=== PATIENT | female | born 1985 | race Caucasian/White ===

== ENCOUNTER 2017-07-08 21:14 | Inpatient (IN) | payer BC ==
[2017-07-08 22:01] VITALS: BMI 27.9
[2017-07-08 23:02] LABS: BASO # 0.1 K/uL (0.0-0.2); BASO % 0.8 % (0.0-2.0); EOS # 0.2 K/uL (0.0-0.7); EOS % 1.6 % (0.0-4.0); HEMOGLOBIN 14.5 g/dL (12.0-16.0); LYMPH # 2.4 K/uL (1.0-4.3); LYMPH % 21.5 % (20.0-40.0); MEAN CELL VOLUME 83.4 fl (81.0-99.0); MEAN CORPUSCULAR HEMOGLOBIN 27.5 pg (27.0-31.0); MEAN PLATELET VOLUME 9.9 fl (7.2-11.7); MONO # 0.6 K/uL (0.0-0.8); MONO % 5.1 % (0.0-10.0); NEUT # 7.9 K/uL (1.8-7.0); RBC 5.27 Mil/uL (3.80-5.20); RED CELL DISTRIBUTION WIDTH 13.8 % (11.5-14.5); WHITE BLOOD COUNT 11.1 K/uL (4.8-10.8)
[2017-07-08] MEDS: Lactated Ringer's 1,000 ML IV SCH (23:59)
--- NOTE | 2017-07-09 00:41 | OBHP ---
Datetime: 07/08/2017 21:00 IP Adm Impression: Term, intrauterine IP Admit Plan: Admit to unit; Initiate labor induction protocol Admit Comment, IP Provider: CC: IOL due to IUGR 31 yo F at 38 weeks presents for IOL due to IUGR, no complaints at this time, -lof,vb,ctx, +FM. PNC: [facility] Dr Flor. PMH: hypothyroidism, PCOS PObH: none PGyn: none FMH: Mother HTN, Father HTN, DM. PSH: none Meds: PNV NKDA SH: -etoh,tobacco,drugs VS: wnl TOCO- Occasional Ctx. FHR- Category 1, Ceph - presentation. Pelvic: 0/50/-2 A/P: 31 yo IUP 38 wks admitted for IOL, IUGR Admitt to unit Cervidil /maternal monitoring Case discussed with Dr Ash Combs PGY 1. Pt seen and evaluated with resident and I agree with the above. Pelvic Type - PN: Adequate Extremities - PN: Normal Abdomen - PN: Normal Back - PN: Normal Breast - PN: Normal Lungs - PN: Normal Heart - PN: Normal Thyroid - PN: Normal Neurologic - PN: Normal HEENT - PN: Normal General - PN: Normal FHR - Baseline A Provider: 148 Membranes, Provider: Intact IP Indication for Induction: IUGR IP Chief Complaint: Scheduled induction of labor NICHD Variability Prov Fetus A: Moderate 6-25bpm NICHD Accel Fetus A IP Provider: [id number] FHR Category Provider Fetus A: Category I NICHD Decel Fetus A IP Provider: None Dilatation, Provider: 0 Effacement, Provider: 50 Station, Provider: -2 Genitourinary Exam: Normal DTRs - PN: Normal
[2017-07-09] MEDS ORDERED: Nalbuphine 20 mg/ml Inj (1 ml) IVP PRN (01:05)
[2017-07-09] MEDS ORDERED: Oxytocin 30 UNITS in Sodium Chloride 0.9% 500 ML IV ONE (03:46)
[2017-07-09] MEDS ORDERED: Bicitra 30 ML UD PO ONE (03:51)
[2017-07-09] MEDS ORDERED: cefOXitin 2 GM in Sodium Chloride 0.9% 100 ML IVPB ONE (04:00)
[2017-07-09] MEDS ORDERED: Morphine 1 mg/ml preservative-free Inj(Duramorph) ONE (04:13)
[2017-07-09] MEDS ORDERED: ePHEDrine 50 mg/ml Inj ONE (04:15)
--- NOTE | 2017-07-09 04:18 | OBPN ---
Datetime: 07/09/2017 04:08 IP Progress Impression: Non-reassuring heart rate IP Procedures: Sterile Vag Exam IP Progress Plan: Deliver- Section FHR - Baseline A Provider: 170 Gestation - Est Wks by US: 38.3 Presentation-Admit: Vertex IP Progress Note Comment: Called to see Pt who has been having eric fetus with tachycardia and variable and late decelerations for most of the contractions. This pattern of tracing continues despite resuscitative measures with oxygen, IV bolus and positioning. The uterus felt firm and boardlike during the contractions. Pulse rate ranged from 105 to 130. Assessment: IUP at 38wks being induced for IUGR Non Reassuring Heart Tracing( Category 3 ) This was explained to the Patient and Delivery recommended. Pt agrees and signed a consent for the procedure. Plan: Prepare for Delivery. NICHD Accel Fetus A IP Provider: 10X10 FHR Category Provider Fetus A: Category III NICHD Variability Prov Fetus A: Minimal - Undetectable to <5bpm Dilatation, Provider: 1 Effacement, Provider: 50 Station, Provider: -2 NICHD Decel Fetus A IP Provider: Late; Variable Datetime: 07/08/2017 21:00 Membranes, Provider: Intact
[2017-07-09] MEDS ORDERED: DiphenhydrAMINE 50 mg/ml Inj IVP PRN (05:42)
--- NOTE | 2017-07-09 05:48 | PCM.SURG1 ---
Surgeon's Initial Post Op Note - Surgeon's Notes Surgeon: Dr Aleman Director Human Services: Laila Gonzalez (Family Practice Resident 0 Type of Anesthesia: Spinal Anesthesia Administered By: Dr Malik Pre-Operative Diagnosis: IUP at 38wks in Labor,. Non Reassuring Heart Rate Tracing Operative Findings: Live male with BW of 2800gm and scores of 9 and 9 delivered in cephalic presentation with a true knot found at the middle portion of the umbilical cord. The uterus as well as both fallopian tubes and ovaries appeared normal. Fundal placenta and clear amniotic fluid. IVFluids- 2000mls. EBL- 600mls. Urine output- 200mls Post-Operative Diagnosis: Same as Above. True umbilical knot Operation Performed: Primary Low transverse Section Specimen/Specimens Removed: Umbilical Cord blood for banking done. Collection material provided by Patient. Estimated Blood Loss: EBL {In ML}: 600 Blood Products Given: N/A Post-Op Condition: Good Date of Surgery/Procedure: 07/09/17 Time of Surgery/Procedure: 05:51
[2017-07-09] MEDS ORDERED: Oxycodone/Acetaminophen 5/325 mg Tab PO PRN (05:52)
[2017-07-09] MEDS: Lactated Ringer's 1,000 ML IV SCH ×2 (07:11→14:03)
--- NOTE | 2017-07-09 08:09 | OBDS ---
DELIVERY PERSONNEL Delivery Doctor: Cesar Aleman MD Warp Dresser: Korina Gifford RN Anesthesiologist: Melida Malik MD Resident: Fermín MATERNAL INFORMATION Delivery Anesthesia: Spinal Medications in Delivery: Oxytocin Estimated Blood Loss (ml): 600 Placenta Cultured: Yes Maternal Complications: None Provider Comments: Uncomplicated Delivery of a viable infant with BW of 2800gms and s cores of 9 and 9. A single true knot noted in the midportion of the umbilical cord. LABOR SUMMARY EDC: 07/20/2017 00:00 No. Babies in Womb: 1 Attempted: No Labor Anesthesia: None LABOR INFORMATION Reason for Induction: Not Applicable Cervical Ripening Agents: Cervidil (Annotations: Placed by Dr. Peguero) Oxytocin: N/A Group B Beta Strep: Positive Steroids Given: None Reason Steroids Not Administered: Not Applicable MEMBRANES Membranes Rupture Method: Artificial Rupture of Membranes: 07/09/2017 04:48 Length of Rupture (hrs): 0.02 Amniotic Fluid Color: Clear Amniotic Fluid Amount: Moderate Amniotic Fluid Odor: Normal STAGES OF LABOR Stage 3 hrs: 0 Stage 3 min: 1 CSECTION DELIVERY Primary Indication: Nonreassuring Status CSection Urgency: Elective CSection Incidence: Primary Labor: Labor Elective: Elective CSection Incision: Lower Uterine Transverse BABY A INFORMATION Infant Delivery Date/Time: 07/09/2017 04:49 Method of Delivery: Born in Route : No : N/A Forceps: N/A Vacuum Extraction: N/A Shoulder Dystocia : No SHOULDER DYSTOCIA BABY A Infant Delivery Date/Time: 07/09/2017 04:49 PRESENTATION/POSITION BABY A Presentation: Cephalic Cephalic Presentation: Vertex PLACENTA INFORMATION BABY A Placenta Delivery Time : 07/09/2017 04:50 Placenta Method of Delivery: Manual Removal Placenta Status: Delivered SCORES BABY A Heart Rate 1 min: >100 bpm Resp Effort 1 min: Good Cry Reflex Irritability 1 min: Cough or Sneeze or Pulls Away Muscle Tone 1 min: Active Motion Color 1 min: Body [place], Extremities Blue Resuscitation Effort 1 min: Tactile Stimulation SCORE 1 MIN: 9 Heart Rate 5 min: >100 bpm Resp Effort 5 min: Good Cry Reflex Irritability 5 min: Cough or Sneeze or Pulls Away Muscle Tone 5 min: Active Motion Color 5 min: Body [place], Extremities Blue Resuscitation Effort 5 min: Tactile Stimulation SCORE 5 MIN: 9 INFORMATION BABY A Gestational Age at Delivery: 38.3 Gestational Status: Term Outcome : Liveborn Condition : Stable Sex: Male IDENTIFICATION/MEDS BABY A ID Band Number: [id number] ID Band Location: Left Leg; Left Arm WEIGHT/LENGTH BABY A Birthweight (gms): 2800 Infant Weight (lb): 6 Weight (oz): 3 CORD INFORMATION BABY A No. Cord Vessels: 3 Nuchal Cord : N/A True Knot: 1 Cord Blood Taken: Yes Banking/Donate Info: [id number] Suction: Mouth ASSESSMENT BABY A Infant Complications: None Physical Findings at Delivery: Within Normal Limits Infant Respirations: Intercostal Retractions Paid Search Marketing Strategist/ALS Called : No Care By: Rhona Dalton RN Transferred To: Nursery
[2017-07-09] MEDS: Simethicone 80 mg Chewtab PO SCH ×2 (10:34→21:33)
[2017-07-09] MEDS: cefOXitin IV 1 gm in Dextrose 1 GM/50 ML BAG IVPB SCH ×2 (14:04→21:32)
[2017-07-10] MEDS: Simethicone 80 mg Chewtab PO SCH ×4 (05:37→22:48)
[2017-07-10] MEDS: cefOXitin IV 1 gm in Dextrose 1 GM/50 ML BAG IVPB SCH (05:38)
[2017-07-10 06:24] LABS: BASO # 0.1 K/uL (0.0-0.2); BASO % 0.5 % (0.0-2.0); EOS # 0.1 K/uL (0.0-0.7); EOS % 0.8 % (0.0-4.0); HEMOGLOBIN 11.5 g/dL (12.0-16.0); LYMPH # 2.2 K/uL (1.0-4.3); LYMPH % 12.9 % (20.0-40.0); MEAN CELL VOLUME 85.1 fl (81.0-99.0); MEAN CORPUSCULAR HEMOGLOBIN 27.7 pg (27.0-31.0); MEAN CORPUSCULAR HGB CONC 32.6 g/dL (33.0-37.0); MONO # 0.7 K/uL (0.0-0.8); MONO % 4.1 % (0.0-10.0); NEUT # 13.8 K/uL (1.8-7.0); NEUT % 81.7 % (50.0-75.0); RBC 4.14 Mil/uL (3.80-5.20); RED CELL DISTRIBUTION WIDTH 13.7 % (11.5-14.5); WHITE BLOOD COUNT 16.9 K/uL (4.8-10.8)
--- NOTE | 2017-07-10 10:10 | OBPPN ---
Datetime: 07/10/2017 10:06 PP Pain Prov: Within normal limits PP Nausea Prov: Denies PP Flatus Prov: Yes PP Breasts Prov: Not Done PP Heart Prov: Normal PP Lungs Prov: Normal PP Abdomen/Uterus Prov: Normal PP Lochia Prov: Not Done PP Vulva/Perineum Prov: Not Done PP CVA Tenderness Prov: Normal PP Extremities Prov: Normal PP C/S Incision Prov: Normal PP Impression Prov: Normal progression PP Plan Prov: Continue present management PP Progress Note Prov: Doing well ambulating tolerating diet and passing flatus and voiding without difficulty reports minimal lochia Vital signs stable afebrile Uterus firm below the umbilicus Incision clean dry and intact Extremities no Homans Postoperative day #1 Ambulating, regular diet, analgesics as needed, anticipate possible discharge tomorrow evening Vital Signs Provider PP: Reviewed
[2017-07-11] MEDS: Simethicone 80 mg Chewtab PO SCH ×4 (04:46→21:00)
[2017-07-11] MEDS: cefOXitin IV 1 gm in Dextrose 1 GM/50 ML BAG IVPB SCH (09:36)
--- NOTE | 2017-07-11 12:13 | OBPPN ---
Datetime: 07/11/2017 12:09 PP Pain Prov: Within normal limits PP Nausea Prov: Denies PP Flatus Prov: Yes PP BM Prov: Yes PP Breasts Prov: Normal PP Heart Prov: Normal PP Lungs Prov: Normal PP Abdomen/Uterus Prov: Normal PP Lochia Prov: Normal PP Vulva/Perineum Prov: Normal PP CVA Tenderness Prov: Normal PP Extremities Prov: Normal PP C/S Incision Prov: Normal PP Progress Prov: Normal PP Comments Phys Exam Prov: Incision clean, dry, intact Uterus firm, below umbilicus No deep Tenderness bilaterally PP Impression Prov: Normal progression PP Plan Prov: Continue present management PP Progress Note Prov: Postoperative #2 status post , patient recovering well Regular diet, out of bed, ambulate Pain control Venodyne's while in bed Anticipate DC home tomorrow IP PP Procedures: None Vital Signs Provider PP: Reviewed; Within Normal Limits
[2017-07-12] MEDS: Simethicone 80 mg Chewtab PO SCH (03:48)
--- NOTE | 2017-07-12 10:55 | OBPPN ---
Datetime: 07/12/2017 10:53 PP Pain Prov: Within normal limits PP Nausea Prov: Denies PP Flatus Prov: Yes PP Breasts Prov: Normal PP Heart Prov: Normal PP Lungs Prov: Normal PP Abdomen/Uterus Prov: Normal PP Lochia Prov: Normal PP Vulva/Perineum Prov: Normal PP CVA Tenderness Prov: Normal PP Extremities Prov: Normal PP Comments Phys Exam Prov: Abd: Soft,NT, BS- present UT- Firm, NT Incision- Clean, Dry PP Impression Prov: Normal progression PP Progress Note Prov: S/P Repeat Section, POD #3 Clinically Stable. Plan: D/c Home F/U with OB clinic in 2 weeks. Pelvic rest for 6 weeks. Vital Signs Provider PP: Reviewed
--- NOTE | 2017-07-12 10:58 | OBDCSUM ---
Datetime: 07/12/2017 10:41 Discharged to, Provider: Home Follow up at, Provider: 1 week incision check up and 6 week vaginal check up Disch Instr Activity: Normal activity; May be up to bathroom; May be up for meals; May Shower Disch Instr Diet: Regular Discharge Instructions, Provider: Routine instructions given Discharge Diagnosis, Provider: Term Delivered Discharge Time: 07/12/2017 10:45 Follow up in weeks, Provider: 1 Week Disch Referrals: None Contraception discussed, Prov: Yes Disch Activity Restrictions: Minimize stair-climbing; No sexual activity; Nothing in vagina - Interc ourse, tampons, douche Discharge Comment, Provider: S/P Repeat Section, Clinically Stable Discharge Diagnosis Prov Other: S/P Repeat Section, Clinically Stable
[2017-07-13 02:53] VITALS: BP 106/71; PULSE 79; RESP 20; TEMP 98.1; O2SAT 98
--- NOTE | 2017-07-13 14:49 | OP ---
PROCEDURE DATE: PREOPERATIVE DIAGNOSIS: Intrauterine at 38 weeks in labor with nonreassuring heart tracing. POSTOPERATIVE DIAGNOSIS: Intrauterine at 38 weeks in labor with nonreassuring heart tracing. PROCEDURE DONE: Primary low transverse caesarean section performed on 07/08/2017. SURGEON: Jm Aleman MD. NUTRITION DIRECTOR: Lisa Ulloa (family practice resident). Migratory Game Bird Biologist for this procedure was needed for exposure of tissues and help in the delivery of the baby. The power plant assistant remained with the surgery throughout its entire length. TYPE OF ANESTHESIA: Spinal. ANESTHESIA ADMINISTERED BY: Torey Malik MD FINDINGS: A live male with weight of 2800 g and scores of 9 in the first and fifth minutes respectively. Baby delivered in cephalic presentation with a true knot found at the middle portion of the umbilical cord. The uterus as well as both fallopian tubes and ovaries appeared normal. Placenta was fundal with clear amniotic fluid. IV FLUID INTAKE: 2000 mL. ESTIMATED BLOOD LOSS: 600 mL. URINE OUTPUT: 200 mL. COMPLICATIONS: There were no complications. DESCRIPTION OF PROCEDURE: After obtaining the informed consent, discussing the risks, benefits and alternatives of this procedure, the patient was sent to the OR with IV running and Mcghee catheter in place. The patient was sat on the OR table and after adequate spinal anesthesia, the patient was placed in a supine position with a left lateral tilt. The patient was then prepped and draped in the usual sterile fashion. The Pfannenstiel skin incision was made about 2.5 cm from the pubis symphysis using a scalpel. This incision was extended through the subcutaneous tissues till the rectus fascia was identified. A transverse incision was made in the rectus fascia using a scalpel, and this was extended to both sides by means of blunt dissection. The rectus fascia was lifted off the rectus muscles both superiorly and inferiorly by means of blunt dissection and sharp dissection with the Hart scissors. The rectus muscles were in the midline to expose the peritoneum, which was tented between two Shobha clamps and sharply entered with good visualization of the bladder. Once the abdominal cavity was entered, the vesicouterine fold of peritoneum was identified. This was incised in a transverse fashion and the peritoneum retracted inferiorly to expose the lower uterine segment. Then a low transverse incision was made using the scalpel and this incision was sent to the myometrial layers till the amniotic fluid was seen. Amniotic membranes were ruptured with a pickup forceps and the baby which was in cephalic presentation was delivered. It was noted on delivery of the baby that there was a true loose knot in the mid portion of the umbilical fold. This was clamped and cut after bulb suctioning the mouth and nostrils of the baby, and the baby was given to the nurse. Umbilical cord blood was obtained at this point for analysis. The placenta was manually removed from the uterine cavity, and the uterus was brought out of the abdominal cavity. The uterine cavity was cleaned of all debris using dry laparotomy pads. The uterine incision was closed in 2 layers using Vicryl #0. The first one in a running locked fashion and the second layer in a running fashion and imbricating the second layer. Once hemostasis had been noted after the repair of the uterine incision, the irrigation of the pelvis was achieved with warm normal saline. The uterus was then returned into the abdominal cavity. The uterine incisional site was reinspected for hemostasis, and once it was assured, attention was turned to the anterior abdominal wall which was repaired in layers with 2-0 Vicryl for the peritoneum and rectus muscles. The rectus fascia was re-approximated using Vicryl #0. The subcutaneous tissues was brought together using #2-0 plain. The skin was closed in a subcuticular fashion using #4-0 Vicryl. All counts of instruments, laparotomy pads, and needles used were correct, and the patient was sent to the recovery room awake and in stable condition. Jm Aleman MD MTDD
== END 2017-07-12 16:00 | disposition home or self-care (01) | DRG 765 ==
LOC: H.EROB2 21:14 → H.L&D 22:23 → H.OB/GYN 07-09 10:30
PROVIDERS: ADMIT Obstetrics & Gynecology Gynecology; ATTEND Obstetrics & Gynecology Gynecology
PROC: 10D00Z1 Extraction of Products of Conception, Low, Open Approach (ICD-10-PCS; principal; 2017-07-08)
PROC: 4A1HXCZ Monitoring of Products of Conception, Cardiac Rate, External Approach (ICD-10-PCS; 2017-07-08)
DX: O76 Abnormality in fetal heart rate and rhythm complicating labor and delivery (principal); O36.5930 Maternal care for other known or suspected poor fetal growth, third trimester, not applicable or unspecified; E03.9 Hypothyroidism, unspecified; Z37.0 Single live birth; O99.284 Endocrine, nutritional and metabolic diseases complicating childbirth; Z3A.38 38 weeks gestation of pregnancy; Z82.49 Family history of ischemic heart disease and other diseases of the circulatory system; Z83.3 Family history of diabetes mellitus